=== PATIENT | male | born 1980 | race African-American/Black ===

== ENCOUNTER 2017-10-12 00:33 | Emergency (ER) | payer OTHER ==
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
[2017-10-12] MEDS ORDERED: IBUPROFEN 600 MG TABLET (FP) PO ONE ×2 (01:24→01:25)
[2017-10-12 01:35] VITALS: BP 164/82; PULSE 60; BMI 39.9
== END 2017-10-12 03:07 | disposition home or self-care (01) ==
LOC: JER 00:33
DX: S29.8XXA Other specified injuries of thorax, initial encounter (principal); M25.511 Pain in right shoulder; V43.52XA Car driver injured in collision with other type car in traffic accident, initial encounter; Y92.414 Local residential or business street as the place of occurrence of the external cause; Y93.89 Activity, other specified; Y99.8 Other external cause status
CPT/HCPCS: 71046-TC-FY; 99282-25